=== PATIENT | male | born 1965 | race African-American/Black ===

== ENCOUNTER 2019-04-08 10:42 | Emergency (ER) | payer OTHER ==
[~2019-04-08] VITALS: Ht 182.9 cm; Wt 97.5 kg
[2019-04-08 11:01] VITALS: BP 180/106
--- NOTE | 2019-04-08 12:14 | PHYS DOC ---
Past Medical History Past Medical History: Hypertension Past Surgical History: No Surgical History Alcohol Use: None Drug Use: Marijuana Social History Narrative: LAST USE 2 DAYS AGO Adult General Chief Complaint Chief Complaint: HAND PROBLEM HPI HPI Patient is a 53 year old Male who presents with was at work yesterday using a conveyor belt when his right hand Stuck under it and when he pulled the right hand out he states he felt pain in his right shoulder. Patient rates his pain 8 out of 10. There is swelling to the dorsal hand distal to the index and middle finger with some tenderness. No laceration or abrasions. Review of Systems Review of Systems Constitutional: Denies fever or chills [] Musculoskeletal: Right hand pain. Denies back pain. Right shoulder joint pain [] Integument: Denies rash or skin lesions [] Neurologic: Denies headache, focal weakness or sensory changes [] All other systems were reviewed and found to be within normal limits, except as documented in this note. Current Medications Current Medications Current Medications Medications (Trade) Dose Ordered Sig/Osbeida Start Time Stop Time Status Last Admin Dose Admin Acetaminophen/ Hydrocodone Bitart (Lortab 5/325) 1 tab 1X ONCE 04/08/19 12:15 04/08/19 12:16 DC 04/08/19 11:55 1 TAB Allergies Allergies Allergies Coded Allergies Type Severity Reaction Last Updated Verified No Known Drug Allergies 04/08/19 No Physical Exam Physical Exam Constitutional: Well developed, well nourished, no acute distress, non-toxic appearance. [] Skin: Warm, dry, no erythema, no rash. [] Extremities: Right dorsal hand tenderness, no cyanosis, no clubbing, Right shoulder ROM not intact, Dorsal hand 1+ edema. [] Neurologic: Alert and oriented X 3, normal motor function, normal sensory function, no focal deficits noted. [] Psychologic: Affect normal, judgement normal, mood normal. [] Current Patient Data Vital Signs Vital Signs Date Time Temp Pulse Resp B/P (MAP) Pulse Ox O2 Delivery O2 Flow Rate FiO2 04/08/19 11:55 16 98 Room Air 04/08/19 11:01 98.0 50 180/106 (130) 98.0 EKG EKG [] Radiology/Procedures Radiology/Procedures [] Impressions: [address] [place] [address] IMAGING REPORT Signed PATIENT: JUAN ANTONIO BAKER ACCOUNT: [id number] : 1965 LOCATION: ER AGE: 53 SEX: M EXAM STATUS: REG ER ORD. PHYSICIAN: ZAC FIELD APRN REASON: right shoulder pain PROCEDURE: SHOULDER 2+V RIGHT EXAM: 3 views right shoulder DATE: 04/08/2019 11:38 AM INDICATION: Right shoulder pain COMPARISON: No Prior FINDINGS: No evidence of acute fracture or dislocation. Mild AC joint degenerative change. Humeral head is not high riding. IMPRESSION: No evidence of acute fracture or dislocation. Electronically signed by: Robinson Rodas MD (04/08/2019 1:18 PM) [facility] DICTATED and SIGNED BY: ROBINSON RODAS MD DATE: 04/08/19 1318 [facility] [address] [place], [place] [id number] IMAGING REPORT Signed PATIENT: JUAN ANTONIO BAKER ACCOUNT: [id number] : 1965 LOCATION: ER AGE: 53 SEX: M EXAM STATUS: REG ER ORD. PHYSICIAN: ZAC FIELD APRN REASON: right hand pain/swelling, caught hand under conveyor belt yesterday PROCEDURE: HAND RIGHT 3V EXAM: PA, oblique and lateral views of the right hand DATE: 04/08/2019 11:38 AM INDICATION: Right hand pain, swelling, cut hand are compared YESTERDAY. COMPARISON: No Prior FINDINGS: Subtle lucency through the tuft of the right ring finger distal phalanx suspicious for acute nondisplaced fracture. Moderate soft tissue swelling about the index, middle and ring fingers. Old fracture deformity at the base of the proximal phalanx right ring finger. 3 mm radiopaque density at the the radial aspect of the proximal phalanx right index finger likely retained foreign body. IMPRESSION: 1. Suspected nondisplaced right ring finger tuft fracture, can be correlated with patient's symptoms. 2. Old fracture deformity proximal phalanx right ring finger. 3. A 3 mm radiopaque density at the radial aspect of the index finger proximal phalanx likely retained foreign body. Electronically signed by: Robinson Rodas MD (04/08/2019 1:21 PM) [facility] DICTATED and SIGNED BY: ROBINSON RODAS MD DATE: 04/08/19 1323 Course & Med Decision Making Course & Med Decision Making Patient is a 53 year old Male who presents with was at work yesterday using a conveyor belt when his right hand Stuck under it and when he pulled the right hand out he states he felt pain in his right shoulder. Patient rates his pain 8 out of 10. There is swelling to the dorsal hand distal to the index and middle finger with some tenderness. No laceration or abrasions. Patient can wiggle fingers. Patient has range of motion in the wrist. No deformity to the right shoulder and there is no pain to palpation. Patient has limited range of motion in the shoulder due to pain. Patient states if he raises to shoulder in any direction above shoulder height is painful. Radial pulse strong and present. Cap refill less than 3 seconds. Hand 1+ edema to dorsal hand. No edema or bruising to the shoulder. 1. Suspected nondisplaced right ring finger tuft fracture, can be correlated with patient's symptoms. 2. Old fracture deformity proximal phalanx right ring finger. 3. A 3 mm radiopaque density at the radial aspect of the index finger proximal phalanx likely retained foreign body. Upon examination there is no foreign body seen and no wounds. No tenderness to the finger. Patient does have 1+ swelling to the tip of the right ring finger where the tuft fracture is located. Patient's finger is splinted. Dragon Disclaimer Dragon Disclaimer This electronic medical record was generated, in whole or in part, using a voice recognition dictation system. Departure Departure Impression: Primary Impression: Closed fracture of tuft of distal phalanx of finger Disposition: 01 HOME, SELF-CARE Condition: STABLE Referrals: NO PCP (PCP) KAMILA BLANCO MD Patient Instructions: Finger Fracture Additional Instructions: Follow up with Dr Blanco as soon as possible. Scripts Hydrocodone/Apap 5-325 (NORCO 5-325 TABLET) 1 Each Tablet 1 TAB PO PRN Q6HRS PRN for PAIN, #10 TAB 0 Refills Prov: ZAC FIELD APRN 04/08/19 ZAC FIELD APRN Apr 08, 2019 12:14
[2019-04-08] MEDS ORDERED: HYDROcodone/APAP 5/325MG 1 TAB TABLET PO ONE (12:15)
--- NOTE | 2019-04-08 13:21 | RAD ---
EXAM: 3 views right shoulder DATE: 04/08/2019 11:38 AM INDICATION: Right shoulder pain COMPARISON: No Prior FINDINGS: No evidence of acute fracture or dislocation. Mild AC joint degenerative change. Humeral head is not high riding. IMPRESSION: No evidence of acute fracture or dislocation. Electronically signed by: Robinson Sanchez MD (04/08/2019 1:18 PM) [email or web address]
--- NOTE | 2019-04-08 13:23 | RAD ---
EXAM: PA, oblique and lateral views of the right hand DATE: 04/08/2019 11:38 AM INDICATION: Right hand pain, swelling, cut hand are compared YESTERDAY. COMPARISON: No Prior FINDINGS: Subtle lucency through the tuft of the right ring finger distal phalanx suspicious for acute nondisplaced fracture. Moderate soft tissue swelling about the index, middle and ring fingers. Old fracture deformity at the base of the proximal phalanx right ring finger. 3 mm radiopaque density at the the radial aspect of the proximal phalanx right index finger likely retained foreign body. IMPRESSION: 1. Suspected nondisplaced right ring finger tuft fracture, can be correlated with patient's symptoms. 2. Old fracture deformity proximal phalanx right ring finger. 3. A 3 mm radiopaque density at the radial aspect of the index finger proximal phalanx likely retained foreign body. Electronically signed by: Robinson Sanchez MD (04/08/2019 1:21 PM) [email or web address]
[2019-04-08] MEDS ORDERED: HYDR-3164 PO (13:30)
== END 2019-04-08 13:53 | disposition home or self-care (01) ==
LOC: ER 10:42
DX: S62.634A Displaced fracture of distal phalanx of right ring finger, initial encounter for closed fracture (principal); I10 Essential (primary) hypertension; W23.0XXA Caught, crushed, jammed, or pinched between moving objects, initial encounter; Y93.89 Activity, other specified; Y92.89 Other specified places as the place of occurrence of the external cause; Y99.0 Civilian activity done for income or pay
CPT/HCPCS: 29130; 73030; 73130; 99284

== ENCOUNTER 2019-08-01 19:21 | Emergency (ER) | payer MEDICAID, OTHER ==
[~2019-08-01] VITALS: Ht 182.9 cm; Wt 95.3 kg
[~2019-08-01 19:21] MED LIST: HYDR-3164 PO
[2019-08-01 19:50] VITALS: BP 140/64
[2019-08-01] MEDS ORDERED: NEOM28OI31 TP (20:16)
--- NOTE | 2019-08-01 20:17 | PHYS DOC ---
Past Medical History Past Medical History: Hypertension Past Surgical History: No Surgical History Alcohol Use: None Drug Use: Marijuana Adult General Chief Complaint Chief Complaint: LACERATION/AVULSION HPI HPI Patient is a 54 year old male who presents with right testicle small cut from shaving that happened today. Tetanus was 5 years ago. Patient denies any pain at this time. Review of Systems Review of Systems Integument: Right testicle cut. Denies rash or skin lesions [] All other systems were reviewed and found to be within normal limits, except as documented in this note. Allergies Allergies Allergies Coded Allergies Type Severity Reaction Last Updated Verified No Known Drug Allergies 04/08/19 No Physical Exam Physical Exam Constitutional: Well developed, well nourished, no acute distress, non-toxic appearance. [] HENT: Normocephalic, atraumatic, bilateral external ears normal, oropharynx moist, no oral exudates, nose normal. [] Eyes: PERRLA, EOMI, conjunctiva normal, no discharge. [] Neck: Normal range of motion, no tenderness, supple, no stridor. [] Cardiovascular:Heart rate regular rhythm, no murmur [] Lungs & Thorax: Bilateral breath sounds clear to auscultation [] Abdomen: Bowel sounds normal, soft, no tenderness, no masses, no pulsatile masses. [] Skin: 2mm right testicle cut. Warm, dry, no erythema, no rash. [] Back: No tenderness, no CVA tenderness. [] Extremities: No tenderness, no cyanosis, no clubbing, ROM intact, no edema. [] Neurologic: Alert and oriented X 3, normal motor function, normal sensory function, no focal deficits noted. [] Psychologic: Affect normal, judgement normal, mood normal. [] EKG EKG [] Radiology/Procedures Radiology/Procedures [] Course & Med Decision Making Course & Med Decision Making Alert and oriented. Patient has a 2 mm approximated superficial cut from shaving to the right testicle. Bleeding controlled. No signs of infection. No swelling to the testicle or tenderness. Normal lie. Laceration Repair by me: Anesthesia: None Location: Right testicle Tendon/Joint/Nerves: No injury Foreign body: None detected after copious irrigation and exploration and clean with chlorhexidine. Technique: Antibiotic ointment and dressing Complexity: No subcutaneous sutures/mucosal repair/edge excision Post Closure Length: 2mm Patient's bleeding was easily controlled in the department and there is no indication of anemia. No evidence of compartment syndrome, neurologic injury, vascular injury, open joint, tendon laceration, or foreign body. Patient is appropriate for outpatient follow up. 48 hour wound check. Scar minimization instructions given. Rosana Disclaimer Rosana Disclaimer This electronic medical record was generated, in whole or in part, using a voice recognition dictation system. Departure Departure Impression: Primary Impression: Superficial laceration Disposition: HOME, SELF-CARE Condition: STABLE Referrals: NO PCP (PCP) Patient Instructions: Medical Screening Exam Additional Instructions: Follow up with primary care. Keep clean and covered. Do not shave over the area until completely healed. Use antibiotic ointment to the area. Watch for signs of infection. Scripts Neomy Sulf/Bacitrac Zn/Poly (ANTIBIOTIC OINTMENT) 28 Gm Oint...g. 28 GM TP BID for 5 Days, #1 MISC Prov: ZAC FIELD APRN 08/01/19 ZAC FIELD APRN Aug 01, 2019 20:17
[2019-08-01] MEDS ORDERED: NEOMY/BACITR/POLYMYXIN OINT PACKET. TP ONE (20:30)
== END 2019-08-01 20:31 | disposition home or self-care (01) ==
LOC: ER 19:21
DX: S31.31XA Laceration without foreign body of scrotum and testes, initial encounter (principal); I10 Essential (primary) hypertension; F12.90 Cannabis use, unspecified, uncomplicated; W26.8XXA Contact with other sharp object(s), not elsewhere classified, initial encounter; Y93.89 Activity, other specified; Y92.89 Other specified places as the place of occurrence of the external cause; Y99.8 Other external cause status
CPT/HCPCS: 99283

== ENCOUNTER 2019-11-19 10:09 | Emergency (ER) | payer OTHER ==
[~2019-11-19] VITALS: Ht 185.4 cm; Wt 100.0 kg
[~2019-11-19 10:09] MED LIST changes: +NEOM28OI31 TP
[2019-11-19 10:56] VITALS: BP 168/73
[2019-11-19] MEDS ORDERED: ONDANSETRON PF 4 MG/2 ML VIAL. IVP ONE (12:00)
[2019-11-19 12:03] LABS: BASO % 1 % (0-3); EOS % 0 % (0-3); HEMATOCRIT 48.5 % (39.0-53.0); LYMPH # 0.8 x10^3/uL (1.0-4.8); LYMPH % 10 % (24-48); MEAN CORPUSCULAR HEMOGLOBIN 28 pg (25-35); MEAN CORPUSCULAR HGB CONC 33 g/dL (31-37); MEAN CORPUSCULAR VOLUME 84 fL (79-100); MONO # 0.2 x10^3/uL (0.0-1.1); MONO % 2 % (0-9); NEUT # 7.3 x10^3/uL (1.8-7.7); NEUT % 87 % (31-73); PLATELET COUNT 404 x10^3/uL (140-400); RED BLOOD COUNT 5.77 x10^6/uL (4.30-5.70); RED CELL DISTRIBUTION WIDTH 14.4 % (11.5-14.5); WHITE BLOOD COUNT 8.3 x10^3/uL (4.0-11.0)
--- NOTE | 2019-11-19 12:11 | EKG ---
[facility] [address] [place] [address] Test Date: 2019-11-19 Test Time: 11:58:40 Pat Name: JUAN ANTONIO BAKER Department: Room: Gender: M Roofing Layer: : 1965 Requested By: DARRION REAVES Order Number: [id number] Reading MD: Lex Gil MD Measurements Intervals [place] Rate: 58 P: 31 DC: 142 QRS: 4 QRSD: 94 T: 1 QT: 416 QTc: 412 Interpretive Statements SINUS RHYTHM Electronically Signed On 11-19-2019 17:56:22 CDT by Lex Gil MD
--- NOTE | 2019-11-19 12:17 | PHYS DOC ---
Past Medical History Past Medical History: Hypertension Past Surgical History: No Surgical History Smoking Status: Never Smoker Alcohol Use: None Drug Use: Marijuana General Adult EDM: Chief Complaint: NAUSEA/VOMITING/DIARRHA HPI: HPI: Patient is a 54 year old male with history of hypertension who presents with with complaining of nausea and vomiting. Patient complaining of constant nausea and 4-5 episodes of nonbloody vomiting since this morning with feeling hot and cold and generalized weakness with abdominal squeezing feeling. Patient denies chest pain or shortness of breath, urinary symptoms, diarrhea and constipation. Patient states he ate some hot dog last night and thinks he has food poisoning. Review of Systems: Review of Systems: Constitutional: Denies fever or chills. [] Eyes: Denies change in visual acuity. [] HENT: Denies nasal congestion or sore throat. [] Respiratory: Denies cough or shortness of breath. [] Cardiovascular: Denies chest pain or edema. [] GI: Report abdominal pain, nausea, vomiting, denies bloody stools or diarrhea. [] : Denies dysuria. [] Musculoskeletal: Denies back pain or joint pain. [] Integument: Denies rash. [] Neurologic: Denies headache, focal weakness or sensory changes. [] Endocrine: Denies polyuria or polydipsia. [] Lymphatic: Denies swollen glands. [] Psychiatric: Denies depression or anxiety. [] Heart Score: Risk Factors: Risk Factors: DM, Current or recent (<one month) smoker, HTN, HLP, family history of CAD, obesity. Risk Scores: Score 0 - 3: 2.5% MACE over next 6 weeks - Discharge Home Score 4 - 6: 20.3% MACE over next 6 weeks - Admit for Clinical Observation Score 7 - 10: 72.7% MACE over next 6 weeks - Early Invasive Strategies Current Medications: Current Medications Medications (Trade) Dose Ordered Sig/Sobeida Start Time Stop Time Status Last Admin Dose Admin Ondansetron HCl (Zofran) 4 mg 1X ONCE 11/19/19 12:00 11/19/19 12:01 DC 11/19/19 11:55 4 MG Allergies: Allergies: Allergies Coded Allergies Type Severity Reaction Last Updated Verified No Known Drug Allergies 04/08/19 No Physical Exam: PE: Constitutional: Well developed, well nourished, mild distress, non-toxic appearance. [] HENT: Normocephalic, atraumatic, moist oral mucosa. Eyes: PERRLA, EOMI, conjunctiva normal, no discharge. [] Neck: Normal range of motion, no tenderness, supple, no stridor. [] Cardiovascular:Heart rate regular rhythm, no murmur [] Lungs & Thorax: Bilateral breath sounds clear to auscultation [] Abdomen: Bowel sounds normal, soft, no tenderness, no masses, no pulsatile masses. [] Skin: Warm, dry, no erythema, no rash. [] Back: No tenderness, no CVA tenderness. [] Extremities: No tenderness, no cyanosis, no clubbing, ROM intact, no edema. [] Neurologic: Alert and oriented X 3, no focal deficits noted. [] Psychologic: Affect normal, judgement normal, mood normal. [] Current Patient Data: Labs: Laboratory Tests Test 11/19/19 11:03 White Blood Count 8.3 x10^3/uL (4.0-11.0) Red Blood Count 5.77 x10^6/uL (4.30-5.70) H Hemoglobin 16.0 g/dL (13.0-17.5) Hematocrit 48.5 % (39.0-53.0) Mean Corpuscular Volume 84 fL (79-100) Mean Corpuscular Hemoglobin 28 pg (25-35) Mean Corpuscular Hemoglobin Concent 33 g/dL (31-37) Red Cell Distribution Width 14.4 % (11.5-14.5) Platelet Count 404 x10^3/uL (140-400) H Neutrophils (%) (Auto) 87 % (31-73) H Lymphocytes (%) (Auto) 10 % (24-48) L Monocytes (%) (Auto) 2 % (0-9) Eosinophils (%) (Auto) 0 % (0-3) Basophils (%) (Auto) 1 % (0-3) Neutrophils # (Auto) 7.3 x10^3/uL (1.8-7.7) Lymphocytes # (Auto) 0.8 x10^3/uL (1.0-4.8) L Monocytes # (Auto) 0.2 x10^3/uL (0.0-1.1) Eosinophils # (Auto) 0.0 x10^3/uL (0.0-0.7) Basophils # (Auto) 0.0 x10^3/uL (0.0-0.2) Platelet Estimate Pending Laboratory Tests 11/19/19 11:03 Vital Signs: Vital Signs Date Time Temp Pulse Resp B/P (MAP) Pulse Ox O2 Delivery O2 Flow Rate FiO2 11/19/19 10:56 98.0 57 16 168/73 (104) 96 Room Air 98.0 EKG: EKG: EKG interpreted by me. EKG at 1158 showed sinus bradycardia at rate of 58, normal NE and QT intervals, no acute ST and T wave elevation. Radiology/Procedures: Radiology/Procedures: [facility] [address] [place] [address] IMAGING REPORT Signed PATIENT: JUAN ANTONIO BAKER ACCOUNT: [id number] : 1965 LOCATION: ER AGE: 54 SEX: M EXAM STATUS: REG ER ORD. PHYSICIAN: DARRION REAVES MD REASON: Nausea and vomiting and weakness PROCEDURE: ABDOMEN LTD Limited abdomen ultrasound HISTORY: Nausea and vomiting, weakness. FINDINGS: Pancreas appears within normal limits. No evidence of gallstone or gallbladder wall thickening. Liver appears unremarkable. No significant biliary ductal dilatation. Right kidney measures 11.4 cm longitudinal without hydronephrosis or focal mass. Inferior vena cava demonstrates no abnormality. IMPRESSION: No significant sonographic abnormality. Electronically signed by: Chilo Velasco MD (11/19/2019 12:30 PM) [facility] DICTATED and SIGNED BY: CHILO VELASCO MD DATE: 11/19/19 1230 Course & Med Decision Making: Course & Med Decision Making Pertinent Labs and Imaging studies reviewed. (See chart for details) I've spoken with the patient and/or caregivers. I've explained the patient's condition, diagnosis and treatment plan based on information available to me at this time. I've answered the patient's and/or caregivers questions and addressed any concerns. The patient and/or caregivers have a good understanding the patient's diagnosis, condition and treatment plan as can be expected at this point. Vital signs have been stabilized. The patient's condition is stable for discharge from the emergency department. The patient will pursue further outpatient evaluation with her primary care provider or other designated consulting physician as outlined in the discharge instructions. Patient and/or caregivers are agreeable to this plan of care and follow-up instructions have been explained in detail. The patient and/or caregivers have received these instructions in written format and expressed understanding of these discharge instructions. The patient and her caregivers are aware that if any significant change in condition or worsening of symptoms should prompt him to immediately return to this of the closest emergency department. If an emergent department is not readily available I would encour age him to call 911. Rosana Disclaimer: [employer] Disclaimer: This electronic medical record was generated, in whole or in part, using a voice recognition dictation system. Departure Departure Impression: Primary Impression: Acute gastritis without bleeding Qualified Codes: K29.00 - Acute gastritis without bleeding Additional Impression: Food poisoning Disposition: HOME, SELF-CARE Condition: IMPROVED Referrals: NO PCP (PCP) Patient Instructions: Food Poisoning, Nausea and Vomiting Additional Instructions: Drink plenty of liquids Follow-up with your primary care physician in 3-5 days Return to ER if not getting better Do not eat solid food today Thank you for visiting [facility]. We appreciate you trusting us with your care. If any additional problems come up don't hesitate to return to visit us. Please follow up with your primary care provider so they can plan additional care if needed and know about the problem that you had. If symptoms worsen come back to the Emergency Department. Any concerning symptoms that start such as chest pain, shortness of air, weakness or numbness on one side of the body, running high fevers or any other concerning symptoms return to the ER. Scripts Ranitidine Hcl (ZANTAC) 150 Mg Tablet 1 TAB PO BID, #14 TAB Prov: DARRION REAVES MD 11/19/19 Ondansetron Hcl (ZOFRAN) 4 Mg Tablet 1 TAB PO PRN Q6-8HRS for nausea, #12 TAB Prov: DARRION REAVES MD 11/19/19 DARRION REAVES MD Nov 19, 2019 12:17
[2019-11-19 12:18] LABS: GFR 93.9; POTASSIUM 4.1 mmol/L (3.5-5.1); TOTAL BILIRUBIN 0.6 mg/dL (0.2-1.0)
[2019-11-19 12:19] LABS: PROTHROMBIN TIME PATIENT 13.5 SEC (11.7-14.0)
--- NOTE | 2019-11-19 12:33 | RAD ---
Limited abdomen ultrasound HISTORY: Nausea and vomiting, weakness. FINDINGS: Pancreas appears within normal limits. No evidence of gallstone or gallbladder wall thickening. Liver appears unremarkable. No significant biliary ductal dilatation. Right kidney measures 11.4 cm longitudinal without hydronephrosis or focal mass. Inferior vena cava demonstrates no abnormality. IMPRESSION: No significant sonographic abnormality. Electronically signed by: Chilo Velasco MD (11/19/2019 12:30 PM) [facility]
[2019-11-19 13:05] LABS: BILIRUBIN,URINE NEGATIVE (NEG); CLARITY,URINE CLEAR; COLOR,URINE YELLOW; NITRITE,URINE NEGATIVE (NEG); PH,URINE 8.5 (<5.0-8.0); PROTEIN,URINE NEGATIVE (NEG-TRACE); UROBILINOGEN,URINE 0.2 mg/dL (0.2 mg/dL)
[2019-11-19 13:12] LABS: BARBITURATES NEG (NEG); BENZODIAZEPINES NEG (NEG); CANNABINOIDS POS (NEG); COCAINE NEG (NEG); METHADONE NEG (NEG); OPIATES NEG (NEG); PHENCYCLIDINE NEG (NEG)
[2019-11-19 13:13] LABS: AMPHETAMINE/METHAMPHETAMINE NEG (NEG)
[2019-11-19] MEDS ORDERED: RANI-376 PO ×2 (13:13→13:31)
[2019-11-19] MEDS ORDERED: ONDA4TAB7 PO ×2 (13:13→13:31)
[2019-11-19 13:15] LABS: AMORPHOUS SEDIMENT,UR PRESENT /HPF; BACTERIA,URINE 0 /HPF (0-FEW); RBC,URINE 0 /HPF (0-2); SQUAMOUS EPITHELIAL CELL,UR FEW /LPF
[2019-11-19] MEDS ORDERED: KETOROLAC 30 MG/ML VIAL. IVP ONE (13:15)
[2019-11-19 13:33] LABS: % BANDS 2 % (0-9); % LYMPHS 7 % (24-48); % MONOS 3 % (0-10); % SEGS 88 % (35-66)
[2019-11-19 13:34] LABS: PLT ESTIMATE INCREASED (ADEQUATE)
== END 2019-11-19 13:43 | disposition home or self-care (01) ==
LOC: ER 10:09
DX: T62.8X1A Toxic effect of other specified noxious substances eaten as food, accidental (unintentional), initial encounter (principal); K29.00 Acute gastritis without bleeding; R11.2 Nausea with vomiting, unspecified; R53.1 Weakness; I10 Essential (primary) hypertension; F12.90 Cannabis use, unspecified, uncomplicated; Y92.89 Other specified places as the place of occurrence of the external cause
CPT/HCPCS: 36415; 76705; 80053; 80307; 81001; 82550; 83690; 84484; 85007; 85025; 85610; 93005; 96374; 96375; 99285; J1885; J2405